=== PATIENT | male | born 1975 | race Caucasian/White ===

== ENCOUNTER 2024-04-06 08:27 | Emergency (ER) | payer OTHER ==
[2024-04-06] VITALS (16 sets, daily range): BP systolic 123–154; BP diastolic 66–86
[~2024-04-06] VITALS: Ht 177.8 cm; Wt 90.7 kg
[~2024-04-06 08:27] MED LIST: ADVAIR DISK1 INH; ATROVENT H17 MCG/ACT; DILTIAZEM120 M1 PO; DULOXETINE HCL60 MG PO; GABAPENTIN; IBUPROFEN600 MG PO; LAMICTAL100 M1 PO; LEVOTHYROXIN50 MC1 PO; LIPITOR20 M1 PO; METOPROLOL TART50 MG PO; PANTOPRAZOLE SO40 M1 PO; PRAZOSIN HCL5 MG PO
[2024-04-06 09:22] LABS: BASO% 0.2 % (0-3); EOS% 0.6 % (0-8); HEMATOCRIT 39.1 % (39.0-50.0); HEMOGLOBIN 12.7 g/dl (14.0-18.0); IMMATURE GRANULOCYTES 0.2 % (0.0-5.0); LYMPH% 19.1 % (15-41); MEAN CELL VOLUME 93.1 fL CALC (80.0-100.0); MEAN CORPUSCULAR HGB 30.2 pG CALC (26.0-32.0); MEAN CORPUSCULAR HGB CONC 32.5 g/dL CAL (32.0-36.0); MONO% 6.1 % (2-13); NEUT# 8.53 thou/uL (1.82-7.42); NEUT% 73.8 % (42-76); RED BLOOD COUNT 4.2 mill/uL (4.70-6.10); RED CELL DISTRI WIDTH 12.1 % (11.5-15.5)
[2024-04-06 09:32] LABS: ALBUMIN 4.1 g/dL (3.2-5.0); BILIRUBIN, TOTAL 0.5 mg/dL (0.2-1.3); CREATININE 0.8 mg/dL (0.7-1.3); POTASSIUM 4.2 mmol/l (3.5-5.1); TOTAL PROTEIN 6.7 g/dL (6.3-8.2)
[2024-04-06 09:39] LABS: URINE BILIRUBIN - DIPSTICK Negative (NEGATIVE); URINE BLOOD DIPSTICK Large (NEGATIVE); URINE GLUCOSE - DIPSTICK Negative (NEGATIVE); URINE KETONE Negative (NEGATIVE); URINE LEUK ESTERASE Trace (NEGATIVE); URINE NITRITE - DIPSTICK Negative (Negative); URINE PH 6.5 (4.5-8.0); URINE PROTEIN - DIPSTICK 100 mg/dL (NEG-TRACE)
[2024-04-06 09:40] LABS: URINE COLOR Yellow
[2024-04-06 09:55] LABS: URINE BACTERIA RARE hpf; URINE RBC 50-100 RBC/hpf (0-5); URINE SQUAMOUS EPITHELIAL CELL RARE EPI/hpf (0-FEW); URINE WBC 0-2 WBC/hpf (0-5)
== END 2024-04-06 12:44 | disposition home or self-care (01) | DRG 726 ==
LOC: ED 08:27
PROVIDERS: Family Medicine
PROC: 0T9B70Z Drainage of Bladder with Drainage Device, Via Natural or Artificial Opening (ICD-10-PCS; principal; 2024-04-06)
DX: N40.1 Benign prostatic hyperplasia with lower urinary tract symptoms (principal); R33.8 Other retention of urine